=== PATIENT | male | born 1965 | race Caucasian/White ===

== ENCOUNTER 2017-12-03 02:31 | Inpatient (IN) ==
[2017-12-03] MEDS ORDERED: IOPAMIDOL 100 ML BOTTLE IV ONE (02:32)
[2017-12-03] MEDS ORDERED: IPRATROPIUM/ALBUTEROL 3 ML AMPUL.NEB NEB ONE ×2 (02:34→03:40)
[2017-12-03 05:46] LABS: Basophils # (Auto) 0 K/mcL (0.0-0.3); Basophils % (Auto) 0.5 % (0.0-2.0); Eosinophils # (Auto) 0.2 K/mcL (0.0-0.7); Eosinophils % (Auto) 2.7 % (0.0-7.0); Granulocytes % (Auto) 70.7 % (38.0-78.0); Lymphocytes # (Auto) 1.4 K/mcL (1.5-4.8); Lymphocytes % (Auto) 20.1 % (15.5-49.0); Mean Cell Volume 89.3 fL (80.0-100.0); Mean Corpuscular HGB Conc 33.7 g/dL (31.0-36.0); Mean Corpuscular Hemoglobin 30.1 pg (26.0-34.0); Monocytes # (Auto) 0.4 K/mcL (0.1-0.9); Platelet Count 262 K/mcL (140-440); RBC 4.75 M/mcL (4.50-5.90); Red Cell Distribution Width 12.6 % (11.5-14.5)
[2017-12-03] MEDS ORDERED: FUROSEMIDE 40 MG/4 ML VIAL IV ONE (05:48)
[2017-12-03 05:50] LABS: ALT/SGPT 33 U/l (0-40); Albumin 4.2 gm/dL (3.2-5.2); Albumin/Globulin Ratio 1.8 (1.0-2.3); Alkaline Phosphatase 72 U/L (39-117); Blood Urea Nitrogen 14 mg/dl (6-20)
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
--- NOTE | 2017-12-03 07:45 | XRay Report ---
HISTORY: Reason for Exam:shortness of breath, cough FINDINGS: Prominent increased interstitial lung markings are present bilaterally. The greatest involvement is around the hilum and medially in both lower lobes. The pulmonary vessels appear enlarged. Small bilateral pleural effusions are present. The heart is mildly enlarged. IMPRESSION: Congestive heart failure. Superimposed pneumonia cannot be excluded. Interpreted and Authenticated by: Tong Lucio 12/03/17
[2017-12-03] MEDS ORDERED: guaiFENesin/CODEINE 10 ML UDC PO PRN (07:47)
[2017-12-03] MEDS ORDERED: POTASSIUM CHLORIDE 20 MEQ PACKET PO PRN (07:47)
[2017-12-03] MEDS ORDERED: ACETAMINOPHEN 1,000 MG/100 ML BOTTLE IV PRN (07:47)
[2017-12-03] MEDS ORDERED: ONDANSETRON 4 MG/2 ML VIAL IV PRN (07:47)
[2017-12-03] MEDS ORDERED: MAGNESIUM SULFATE 2 GM/50 ML BAG IV PRN (07:47)
[2017-12-03] MEDS ORDERED: ACETAMINOPHEN 325 MG TABLET PO PRN (07:47)
[2017-12-03] MEDS ORDERED: traZODone HCL 50 MG TABLET PO PRN (07:47)
--- NOTE | 2017-12-03 07:49 | Cat Scan Report ---
CLINICAL INFORMATION: Reason for Exam:shortness of breath, elevated d-dimer COMPARISON: None TECHNIQUE: Axial images obtained through the chest. intravenous contrast administration was administered, and scanning was performed during pulmonary arterial phase. Sagittally and coronally reformatted images were obtained. MIP reformatted images. Radiation exposure was limited using dose reduction technology. Field findings FINDINGS: The pulmonary arteries are normal with no intraluminal filling defects. The aorta is normal in caliber and there is no dissection, aneurysm or atherosclerosis. The heart is mildly enlarged with a dilated left ventricle. No pericardial effusion is present. There are small to moderate-sized bilateral layering pleural effusions. Associated with this is partial atelectasis in the basilar segments of both lower lobes. Subtle as well as alveolar opacities are seen in the superior segments of both lower lobes and around the soniya. No enlarged lymph nodes are present in the mediastinum or soniya. There is a large lymph node in the right axilla which measures 1.9 x 2.7 cm. There couple small stones in the lumen of the gallbladder. Gallbladder waggoner not thickened or inflamed. There also appears to be some sludge within the gallbladder. Bile ducts are nondilated. IMPRESSION: No evidence of pulmonary emboli Bilateral pleural effusions, cardiomegaly and mild pulmonary edema due to congestive heart failure. Nonspecific enlarged lymph node in the right axilla Interpreted and Authenticated by: Tong Lucio 12/03/17
[2017-12-03] MEDS: MULTIVIT,THER IRON,CA,FA & MIN 1 TABLET PO SCH (09:33)
[2017-12-03] MEDS: LISINOPRIL 5 MG TABLET PO SCH (09:33)
[2017-12-03] MEDS: ASPIRIN 81 MG TAB.CHEW CHEWED SCH (09:33)
[2017-12-03] MEDS: FUROSEMIDE 40 MG/4 ML VIAL IV SCH ×2 (09:33→15:09)
[2017-12-03] MEDS: METOPROLOL SUCCINATE 25 MG TAB.XL.24H PO SCH (09:34)
[2017-12-03] MEDS: HEPARIN 5,000 UNIT/ML VIAL SQ SCH ×2 (09:34→22:00)
[2017-12-03] MEDS: DOCUSATE SODIUM 100 MG CAPSULE PO SCH ×2 (09:35→20:20)
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
--- NOTE | 2017-12-03 14:59 | Internal Med History&Physical ---
Medical - H&P: [facility] Patient information: Note initiated : 12/03/17 at 2:54 pm Service Date, if different from initiated Date: [] Patient: Casper Burks a 52 y/o M admitted on 12/03/17 for Shortness of breath. Chief Complaint: [] Chief complaint: shortness of breath History of present illness: Mr. 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 He presents to [facility] ER along with his with complains of progressive dyspnea over the last few weeks initially on exertion progressing to dyspnea at rest to the point patient could barely sleep or function. He also endorses to associated 15 pound weight gain over the last 4 weeks. Symptoms have worsened gradually and he did not seek medical attention in the interim. Initial workup in the ER was consistent with acute decompensated heart failure with pulmonary edema on chest imaging. Patient got first dose of Lasix with improvement in dyspnea. Subsequently hospitalist service was consulted for admission. Patient denies prior similar events or history of coronary artery disease. He denies associated chest palpitation, chest pain, heat intolerance, smoking, fever or chills. Patient endorses to lower back pain 6 weeks ago which has been evaluated and was started on NSAIDs and subsequently methocarbamol / hydrocodone with minimal relief. Patient denies high salt intake. Patient denies history of congenital heart disease. Review of systems A 10 point review of system was performed and is negative except as discussed above Medical - H&P: PMH Medical history: Lower back pain Pertinent family history: Nonsignificant Social history: Patient is to [place]] No history of smoking 4 beers a day Works at [employer] Medical - H&P: Meds Home Medications Medication Instructions Recorded Confirmed Type Aspirin 81 mg CHEWED DAILY #60 tab.chew 12/04/17 Rx Furosemide [Lasix] 20 mg PO DAILY #30 tab 12/04/17 Rx Lisinopril [Zestril] 10 mg PO DAILY #60 tab 12/04/17 Rx Metoprolol Succinate [Toprol Xl] 25 mg PO DAILY #60 tab.xl.24h 12/04/17 Rx Multivit,Ther Iron,Ca,FA & Min 1 tab PO DAILY #60 tab 12/04/17 Rx [Multivitamin W/Minerals] Potassium Chloride [Kdur] 10 meq PO [facility] #60 tab 12/04/17 Rx Allergies Allergy/AdvReac Type Severity Reaction Status Date / Time No Known Drug Allergies Allergy Verified 10/13/17 10:37 Medical - H&P: Exam - Constitutional Vitals: Temp Pulse Resp BP Pulse Ox 97.9 F 108 H 16 148/89 95 12/03/17 11:47 12/03/17 07:37 12/03/17 11:47 12/03/17 11:47 12/03/17 11:47 General appearance: cooperative, no acute distress, obese Exam: Pupils symmetric oral cavity dry. No ear discharge Head normocephalic Neck no lymphadenopathy S1 and S2 regular rhythm Bilateral crackles Abdomen soft Lower extremity 1+ pitting edema Skin no suspicious lesion Psych alert and cooperative Neuro nonfocal Medical - H&P: Reslt - Labs CBC & Chem 7: 12/04/17 03:29 12/04/17 03:29 Labs: Short CBC 12/03/17 Range/Units 03:45 WBC 6.9 (4.5-11.0) K/mcL Hgb 14.3 (13.5-16.5) g/dL Hct 42.5 (41.0-55.0) % Plt Count 262 (140-440) K/mcL BMP 12/03/17 03:45 Sodium 140 Potassium 4.1 Chloride 104 Carbon Dioxide 26 BUN 14 Creatinine 0.8 Glucose 95 Calcium 8.9 Cardiac Enzymes 12/03/17 Range/Units 03:45 Troponin T < 0.01 (0-0.03) ng/ml Liver Function 12/03/17 Range/Units 03:45 Total Bilirubin 0.6 (0.0-1.0) mg/dL AST 19 (0-37) U/l ALT 33 (0-40) U/l Alkaline Phosphatase 72 (39-117) U/L Albumin 4.2 (3.2-5.2) gm/dL Medical - H&P: A/P (1) Heart failure with acute decompensation, type unknown Current visit: Yes Status: Acute * Acute decompensated heart failure-await echocardiogram. Continue diuresis. Start beta gary, NONA inhibitor. * Hypertension- initiate NONA inhibitor and beta gary. * Dyspnea secondary to pulmonary edema- continue supplemental oxygen, diuresis, pulmonary toilet * Prophylaxis heparin full code Plan * Optimize CHF management based on echo finding * Aggressive diuresis * Telemetry admit * Anticipate minimum two midnight stay
[2017-12-03] MEDS: 0.9 % SODIUM CHLORIDE 10 ML SYRINGE IV SCH ×2 (15:09→21:57)
[2017-12-03 17:35] LABS: ALT/SGPT 34 U/l (0-40); Albumin 4.6 gm/dL (3.2-5.2); Albumin/Globulin Ratio 1.8 (1.0-2.3); Alkaline Phosphatase 77 U/L (39-117); Bilirubin,Direct < 0.2 mg/dL (0.0-0.3); Blood Urea Nitrogen 14 mg/dl (6-20); Gamma Glutamyl Transpeptidase 44 U/L (8-61); Uric Acid 6.2 mg/dL (2.5-8.0)
[2017-12-03] MEDS ORDERED: THIAMINE 100 MG in 0.9 % SODIUM CHLORIDE 50 ML IV ONE (20:04)
[2017-12-03] MEDS ORDERED: SENNOSIDES/DOCUSATE SODIUM 1 TAB TABLET PO SCH (21:00)
[2017-12-04] MEDS: 0.9 % SODIUM CHLORIDE 10 ML SYRINGE IV SCH (05:38)
[2017-12-04 05:40] LABS: Mean Corpuscular Hemoglobin 30.3 pg (26.0-34.0); Platelet Count 265 K/mcL (140-440); RBC 4.99 M/mcL (4.50-5.90); Red Cell Distribution Width 12.6 % (11.5-14.5)
[2017-12-04 06:00] LABS: ALT/SGPT 27 U/l (0-40); Albumin 4.2 gm/dL (3.2-5.2); Albumin/Globulin Ratio 1.7 (1.0-2.3); Alkaline Phosphatase 72 U/L (39-117); Bilirubin,Direct < 0.2 mg/dL (0.0-0.3); Blood Urea Nitrogen 17 mg/dl (6-20); Gamma Glutamyl Transpeptidase 41 U/L (8-61); Uric Acid 6.6 mg/dL (2.5-8.0)
[2017-12-04 08:34] LABS: Band Neutrophils % 1 % (0-10); Eosinophils % (Manual) 4 % (0-7); Lymphocytes % 24 % (15-49); Monocytes % (Manual) 8 % (1-12); Platelet Estimate NORMAL (NORMAL); RBC Morphology NORMAL (NORMAL); Segmented Neutrophils % 63 % (38-78)
[2017-12-04] MEDS: ASPIRIN 81 MG TAB.CHEW CHEWED SCH (08:52)
[2017-12-04] MEDS: FUROSEMIDE 40 MG/4 ML VIAL IV SCH (08:52)
[2017-12-04] MEDS: MULTIVIT,THER IRON,CA,FA & MIN 1 TABLET PO SCH (08:53)
[2017-12-04] MEDS: METOPROLOL SUCCINATE 25 MG TAB.XL.24H PO SCH (08:53)
[2017-12-04] MEDS: LISINOPRIL 5 MG TABLET PO SCH (08:54)
[2017-12-04] MEDS ORDERED: THIAMINE 100 MG in 0.9 % SODIUM CHLORIDE 50 ML IV SCH (09:00)
--- NOTE | 2017-12-04 09:36 | Discharge Summary ---
Medical - DS: Prov Patient information: Note initiated : 12/04/17 at 9:32 am Service Date, if different from initiated Date: [] Patient: Casper Burks 52 y/o M admitted on 12/03/17 for Shortness of breath. Chief Complaint: [] Date of admission: 12/03/17 07:40 Discharge date: 12/04/17 Primary care physician: Damian Donohue Consults: 12/03/17 06:58 Consult to Physician [CONS] Stat Comment: Consulting Provider: Eduardo Patel Reason For Exam: Physician to Consult Medical - DS: Meds - Discharge Medications Prescriptions: Aspirin 81 mg CHEWED DAILY #60 tab.chew Furosemide [Lasix] 20 mg PO DAILY #30 tab Lisinopril [Zestril] 10 mg PO DAILY #60 tab Metoprolol Succinate [Toprol Xl] 25 mg PO DAILY #60 tab.xl.24h Multivit,Ther Iron,Ca,FA & Min [Multivitamin W/Minerals] 1 tab PO DAILY #60 tab Potassium Chloride [Kdur] 10 meq PO QAMCC #60 tab Active and Home Medications: Home Medications Aspirin 81 mg CHEWED DAILY #60 tab.chew 12/04/17 [Rx Last Taken Unknown] Furosemide [Lasix] 20 mg PO DAILY #30 tab 12/04/17 [Rx Last Taken Unknown] Lisinopril [Zestril] 10 mg PO DAILY #60 tab 12/04/17 [Rx Last Taken Unknown] Metoprolol Succinate [Toprol Xl] 25 mg PO DAILY #60 tab.xl.24h 12/04/17 [Rx Last Taken Unknown] Multivit,Ther Iron,Ca,FA & Min [Multivitamin W/Minerals] 1 tab PO DAILY #60 tab 12/04/17 [Rx Last Taken Unknown] Potassium Chloride [Kdur] 10 meq PO QAMCC #60 tab 12/04/17 [Rx Last Taken Unknown] Medical - DS: Hosp Hospital course: Discharge diagnosis * Acute decompensated systolic heart failure-globally depressed EF at 15%. Very high risk cardiac arrhythmia/further decompensation. Responding well to diuretics. Continue NONA inhibitor beta gary. Scheduled outpatient cardiology follow-up for further evaluation and management of systolic heart failure and defib eval due to high-risk arrythmias. * Hypertension-improved blood pressure on NONA inhibitor and beta gary. Adviced to follow-up with cardiology * Dyspnea secondary to pulmonary edema- clinically resolved. Currently on room air and feels at baseline Brief hospital course Mr. 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 He presents to [facility] ER along with his with complains of progressive dyspnea over the last few weeks initially on exertion progressing to dyspnea at rest to the point patient could barely sleep or function. He also endorses to associated 15 pound weight gain over the last 4 weeks. Symptoms have worsened gradually and he did not seek medical attention in the interim. Initial workup in the ER was consistent with acute decompensated heart failure with pulmonary edema on chest imaging. Patient got first dose of Lasix with improvement in dyspnea. Subsequently hospitalist service was consulted for admission. Patient denies prior similar events or history of coronary artery disease. He denies associated chest palpitation, chest pain, heat intolerance, smoking, fever or chills. Patient endorses to lower back pain 6 weeks ago which has been evaluated and was started on NSAIDs and subsequently methocarbamol / hydrocodone with minimal relief. Patient denies high salt intake. Patient denies history of congenital heart disease. 12/04- severely depressed EF at 15% on echocardiogram. Global hypokinesis without segmental wall motion abnormality. On NONA inhibitor/beta gary. Over 3000 cc net negative fluid status in response to diuretics. Patient feels clinically better with improvement in orthopnea/dyspnea. Recommend follow-up outpatient with cardiology early next week for evaluation of heart failure with reduced ejection fraction. Counseling performed on alcohol cessation as well as daily weight measurements and to take additional Lasix if weight gain is over 4 pounds above baseline Discharge diagnosis: . - Time Spent with Patient Total time spent providing and/or coordinating discharge services: Greater than 30 minutes Medical - DS: Exam - Constitutional Vitals: Vital Signs Temp Pulse Resp BP BP Pulse Ox 12/04/17 06:59 97.5 F 16 114/92 94 12/04/17 04:00 98.3 F 90 18 134/98 95 12/04/17 00:00 95 H 16 140/88 95 12/03/17 20:00 98.0 F 90 14 95 12/03/17 15:00 97.7 F 16 134/90 93 12/03/17 11:47 97.9 F 16 148/89 95 Intake and Output 12/03/17 12/04/17 12/04/17 21:59 05:59 13:59 Intake Total 620 / 620 480 / 480 240 / 240 Output Total 1600 / 1600 575 / 575 Balance -980 / -980 480 / 480 -335 / -335 Intake: Oral 620 / 620 480 / 480 240 / 240 Output: Void Amount 1600 / 1600 575 / 575 Other: Meal Breakfast Percent of Meal Consumed 100% Feeding Ability Independent # Voids 1 2 Weight 226 lb Medical - DS: Data Labs on day of discharge: Labs from last 24 hours 12/04/17 12/04/17 12/03/17 03:29 03:29 16:50 WBC 5.3 RBC 4.99 Hgb 15.1 Hct 44.4 MCV 89.0 MCH 30.3 MCHC 34.0 RDW 12.6 Plt Count 265 MPV 8.0 Total Counted 100 Seg Neutrophils % 63 Band Neutrophils % 1 Lymphocytes % 24 Monocytes % (Manual) 8 Eosinophils % (Manual) 4 Platelet Estimate Normal RBC Morphology Normal Sodium 138 137 Potassium 3.7 3.5 Chloride 101 97 Carbon Dioxide 26 28 Anion Gap 11.0 12.0 BUN 17 14 Creatinine 0.9 1.1 GFR Calculation 98 77 Glucose 82 94 Uric Acid 6.6 6.2 Calcium 9.3 9.3 Phosphorus 3.5 4.4 Magnesium 2.1 2.0 Total Bilirubin 0.6 0.6 Direct Bilirubin < 0.2 < 0.2 GGT 41 44 AST 19 21 ALT 27 34 Alkaline Phosphatase 72 77 Lactate Dehydrogenase 201 201 Total Protein 6.7 7.1 Albumin 4.2 4.6 Globulin 2.5 2.5 Albumin/Globulin Ratio 1.7 1.8 Triglycerides 112 127 Medical - DS: A/P - Patient/Caregiver Discharge Instructions Activity: increase activity as tolerated Diet: Low Sodium (2gm) Additional Instructions: Follow-up PCP in 5 days Follow-up cardiology early as possible appointment next week for evaluation of systolic heart failure Continue NONA inhibitor/beta gary as advised Lasix and potassium as advised daily weights measurements and take additional 40 mg Lasix for 3 days if weight gain over 4 pounds over baseline or worsening shortness of breath and call primary care physician if inadequate response to Lasix Return to ER if worsening fever chills shortness of breath Review risk and side effect profile of medications including NONA inhibitor/beta gary. Side effect may include mild to severe reaction including cough/ angioedema, rash, bradycardia, dizziness which can be prevented by close follow- up with PCP and monitoring for side effects Refrain from alcohol Continue diet and activity as advised Discussed importance of medication adherence Please review medication list with patient prior to discharge Please schedule follow-up with PCP/Providers prior to discharge and provide printouts Portions of this chart may have been created with [employer] voice recognition software. Occasional wrong-word or ?sound-like? substitutions may have occurred due to the inherent limitations of voice recognition software. Please read the chart carefully and recognize, using context, where the substitutions have occurred. CC- PCP Prescriptions: Aspirin 81 mg CHEWED DAILY #60 tab.chew Furosemide [Lasix] 20 mg PO DAILY #30 tab Lisinopril [Zestril] 10 mg PO DAILY #60 tab Metoprolol Succinate [Toprol Xl] 25 mg PO DAILY #60 tab.xl.24h Multivit,Ther Iron,Ca,FA & Min [Multivitamin W/Minerals] 1 tab PO DAILY #60 tab Potassium Chloride [Kdur] 10 meq PO QAC #60 tab - Problem Maintenance (1) Heart failure with acute decompensation, type unknown Status: Acute Qualifiers: Heart failure type: systolic Qualified Code(s): I50.23 - Acute on chronic systolic (congestive) heart failure - Follow up Plan Follow up with: Damian Donohue PA-C [Primary Care Provider] - Disposition: Home, Self-Care Prognosis: Fair Rehab Potential: Fair I certify that the patient requires SNF services: No Overall status at discharge: patient is progressing back to baseline
[2017-12-04] MEDS: HEPARIN 5,000 UNIT/ML VIAL SQ SCH (14:53)
[2017-12-04] MEDS: DOCUSATE SODIUM 100 MG CAPSULE PO SCH (14:53)
== END 2017-12-04 14:30 | disposition home or self-care (01) | DRG 293 ==
LOC: ED 02:31 → MEDSUR 07:40 → ICU 17:36
PROVIDERS: ADMIT Internal Medicine; ATTEND Internal Medicine